=== PATIENT | male | born 1965 | race Caucasian/White ===

== ENCOUNTER 2019-03-13 17:32 | Emergency (ER) | payer SELFPAY ==
[~2019-03-13] VITALS: Ht 167.6 cm; Wt 65.0 kg
[2019-03-13 18:57] LABS: HEMATOCRIT 48.5 % (39.0-50.0); HEMOGLOBIN 16.8 g/dl (14.0-18.0); IMMATURE GRANULOCYTES 0.4 % (0.0-5.0); MEAN CORPUSCULAR HGB 31.2 pG CALC (26.0-32.0); MEAN CORPUSCULAR HGB CONC 34.6 g/L CALC (32.0-36.0); NEUT# 8.79 thou/uL (1.82-7.42); RED BLOOD COUNT 5.39 mill/uL (4.70-6.10); RED CELL DISTRI WIDTH 12.6 % (11.5-15.5)
[2019-03-13 19:17] LABS: ALBUMIN 4.4 g/dL (3.2-5.0); ALKALINE PHOSPHATASE 67 u/l (38-126); AMYLASE 62 u/l (30-110); ANION GAP 14 (6-22 (CALC)); BILIRUBIN, TOTAL 1.1 mg/dL (0.0-1.4); BUN 37 mg/dL (9-20); BUN/CREATININE RATIO 32 (12-20 (CALC)); CARBON DIOXIDE 39 mmol/l (22-30); CHLORIDE 78 mmol/l (95-108); CREATININE 1.2 mg/dL (0.7-1.3); GFR > 60 ML/MIN (>=60 (CALC)); GFR FOR AFR.AMER. > 60 ML/MIN (>=60 (CALC)); LIPASE 214 u/l (23-300); POTASSIUM 3.1 mmol/l (3.5-5.1); SGOT/AST 38 u/l (17-59); SODIUM 128 mmol/l (137-146); TOTAL PROTEIN 7.5 g/dL (6.3-8.2)
[2019-03-13 19:35] LABS: URINE BILIRUBIN - DIPSTICK NEGATIVE (NEGATIVE); URINE BLOOD DIPSTICK NEGATIVE (NEGATIVE); URINE COLOR YELLOW; URINE GLUCOSE - DIPSTICK NEGATIVE (NEGATIVE); URINE KETONE NEGATIVE (NEGATIVE); URINE LEUK ESTERASE NEGATIVE (NEGATIVE); URINE NITRITE - DIPSTICK NEGATIVE (Negative); URINE PH 6.5 (4.5-8.0); URINE PROTEIN - DIPSTICK NEGATIVE (NEG-TRACE); URINE SPECIFIC GRAVITY <=1.005; URINE UROBILINOGEN - DIPSTICK 0.2 E.U./dL (0.2)
[2019-03-13] MEDS ORDERED: K-TAB8 MEQ PO (20:20)
[2019-03-13] MEDS ORDERED: PHENERGAN25 MG/TAB PO (20:20)
[2019-03-13 21:15] VITALS: BP 168/86
== END 2019-03-13 21:15 | disposition home or self-care (01) | DRG 392 ==
LOC: ED 17:32
PROVIDERS: Family Medicine
DX: K52.9 Noninfective gastroenteritis and colitis, unspecified (principal); E87.1 Hypo-osmolality and hyponatremia; E87.6 Hypokalemia; E86.0 Dehydration; F17.210 Nicotine dependence, cigarettes, uncomplicated

== ENCOUNTER 2023-11-29 17:00 | Emergency (ER) | payer SELFPAY ==
[~2023-11-29] VITALS: Ht 167.6 cm; Wt 68.0 kg
[~2023-11-29 17:00] MED LIST: K-TAB8 MEQ PO; PHENERGAN25 MG/TAB PO
[2023-11-29] MEDS ORDERED: AMOX/K CLAV875 M1 PO (19:38)
[2023-11-29] MEDS ORDERED: TRAZODONE50 MG PO (19:38)
[2023-11-29 19:47] VITALS: BP 173/98
== END 2023-11-29 19:56 | disposition home or self-care (01) | DRG 153 ==
LOC: ED 17:00
DX: J06.9 Acute upper respiratory infection, unspecified (principal); G47.00 Insomnia, unspecified

== ENCOUNTER 2023-12-09 07:32 | Observation (INO) | payer SELFPAY ==
[~2023-12-09] VITALS: Ht 167.6 cm; Wt 70.0 kg
[2023-12-09] VITALS (21 sets, daily range): BP systolic 143–224; BP diastolic 67–122
[~2023-12-09 07:32] MED LIST changes: +AMOX/K CLAV875 M1 PO; +TRAZODONE50 MG PO
[2023-12-09 07:56] LABS: BASO% 0.4 % (0-3); EOS% 5.3 % (0-8); HEMATOCRIT 45.1 % (39.0-50.0); HEMOGLOBIN 14.7 g/dl (14.0-18.0); IMMATURE GRANULOCYTES 0.4 % (0.0-5.0); LYMPH% 23.6 % (15-41); MEAN CELL VOLUME 94.9 fL CALC (80.0-100.0); MEAN CORPUSCULAR HGB 30.9 pG CALC (26.0-32.0); MEAN CORPUSCULAR HGB CONC 32.6 g/dL CAL (32.0-36.0); MONO% 10.5 % (2-13); NEUT% 59.8 % (42-76); RED BLOOD COUNT 4.75 mill/uL (4.70-6.10); RED CELL DISTRI WIDTH 12.8 % (11.5-15.5)
[2023-12-09 08:26] LABS: ALBUMIN 4.1 g/dL (3.2-5.0); ALKALINE PHOSPHATASE 52 u/l (38-126); BUN 13 mg/dL (9-20); BUN/CREATININE RATIO 15 (12-20 (CALC)); CREATININE 0.9 mg/dL (0.7-1.3); GFR FOR AFR.AMER. > 60 ML/MIN (>=60 (CALC)); GFR OTHER RACES > 60 ML/MIN (>=60 (CALC)); SGOT/AST 43 u/l (17-59); TOTAL PROTEIN 7.3 g/dL (6.3-8.2)
[2023-12-09 08:36] LABS: ANION GAP 9 (6-22 (CALC)); BILIRUBIN, TOTAL 0.4 mg/dL (0.2-1.3); CARBON DIOXIDE 25 mmol/l (22-30); CHLORIDE 108 mmol/l (95-108); POTASSIUM 4.3 mmol/l (3.5-5.1); SODIUM 138 mmol/l (137-146)
[2023-12-10 03:39] LABS: BASO% 0.6 % (0-3); EOS% 5.3 % (0-8); HEMOGLOBIN 13.8 g/dl (14.0-18.0); IMMATURE GRANULOCYTES 0.2 % (0.0-5.0); LYMPH% 24.9 % (15-41); MEAN CELL VOLUME 93.8 fL CALC (80.0-100.0); MEAN CORPUSCULAR HGB 31.6 pG CALC (26.0-32.0); MEAN CORPUSCULAR HGB CONC 33.7 g/dL CAL (32.0-36.0); MONO% 11.2 % (2-13); NEUT# 5.16 thou/uL (1.82-7.42); NEUT% 57.8 % (42-76); RED BLOOD COUNT 4.37 mill/uL (4.70-6.10); RED CELL DISTRI WIDTH 12.6 % (11.5-15.5)
[2023-12-10 03:59] VITALS: BP 162/88
[2023-12-10 05:47] LABS: ALBUMIN 3.6 g/dL (3.2-5.0); ALKALINE PHOSPHATASE 47 u/l (38-126); ANION GAP 8 (6-22 (CALC)); BILIRUBIN, TOTAL 0.5 mg/dL (0.2-1.3); BUN 11 mg/dL (9-20); BUN/CREATININE RATIO 14 (12-20 (CALC)); CALCULATED LDLCHOLESTEROL 117 mg/dL (62-129 (CALC)); CARBON DIOXIDE 24 mmol/l (22-30); CHLORIDE 111 mmol/l (95-108); CHOLESTEROL HDL RATIO 5.9 (<4.4 (CALC)); CREATININE 0.7 mg/dL (0.7-1.3); GFR FOR AFR.AMER. > 60 ML/MIN (>=60 (CALC)); GFR OTHER RACES > 60 ML/MIN (>=60 (CALC)); HDL CHOLESTEROL 29 mg/dL (39.0-59.0); MAGNESIUM 1.9 mg/dL (1.6-2.3); POTASSIUM 4.1 mmol/l (3.5-5.1); SGOT/AST 38 u/l (17-59); SODIUM 139 mmol/l (137-146); TOTAL CHOLESTEROL 170 mg/dl (0-199); TOTAL PROTEIN 6.2 g/dL (6.3-8.2); TOTAL TRIGLYCERIDES 123 mg/dl (0-149); VLDL CHOLESTROL 25 mg/dl (8-62 (CALC))
[2023-12-10 05:56] LABS: C-REACTIVE PROTEIN < 0.5 mg/dL (0-0.9)
[2023-12-10 07:36] VITALS: BP 151/85
[2023-12-10 11:45] VITALS: BP 163/95
[2023-12-10] MEDS ORDERED: AMLODIPINE BESYL5 MG PO (11:49)
[2023-12-10] MEDS ORDERED: LOSARTAN POTASS50 MG PO (11:50)
[2023-12-10] MEDS ORDERED: ATIVAN0.5 MG PO (11:51)
== END 2023-12-10 12:39 | disposition home or self-care (01) | DRG 313 ==
LOC: ED 07:32 → ED-I 09:00 → ED 09:16 → MS2 09:17
PROVIDERS: Family Medicine; ADMIT Student in an Organized Health Care Education/Training Program; ATTEND Student in an Organized Health Care Education/Training Program
DX: R07.89 Other chest pain (principal); R21 Rash and other nonspecific skin eruption; I10 Essential (primary) hypertension; F51.01 Primary insomnia; M25.50 Pain in unspecified joint; F17.200 Nicotine dependence, unspecified, uncomplicated
CPT/HCPCS: G0378; J1650

== ENCOUNTER 2023-12-25 14:26 | Emergency (ER) | payer SELFPAY ==
[~2023-12-25] VITALS: Ht 167.6 cm; Wt 68.0 kg
[2023-12-25] VITALS (16 sets, daily range): BP systolic 132–159; BP diastolic 85–136
[~2023-12-25 14:26] MED LIST changes: +AMLODIPINE BESYL5 MG PO; +ATIVAN0.5 MG PO; +LOSARTAN POTASS50 MG PO
[2023-12-25 15:18] LABS: BASO% 0.6 % (0-3); EOS% 2.3 % (0-8); HEMATOCRIT 45.2 % (39.0-50.0); IMMATURE GRANULOCYTES 0.2 % (0.0-5.0); LYMPH% 19.8 % (15-41); MEAN CELL VOLUME 93.2 fL CALC (80.0-100.0); MEAN CORPUSCULAR HGB 30.9 pG CALC (26.0-32.0); MEAN CORPUSCULAR HGB CONC 33.2 g/dL CAL (32.0-36.0); MONO% 12.4 % (2-13); NEUT# 6.55 thou/uL (1.82-7.42); NEUT% 64.7 % (42-76); RED BLOOD COUNT 4.85 mill/uL (4.70-6.10); RED CELL DISTRI WIDTH 12.5 % (11.5-15.5)
[2023-12-25 15:35] LABS: ALKALINE PHOSPHATASE 58 u/l (38-126); ANION GAP 15 (6-22 (CALC)); BILIRUBIN, TOTAL 0.5 mg/dL (0.2-1.3); BUN 27 mg/dL (9-20); BUN/CREATININE RATIO 20 (12-20 (CALC)); CARBON DIOXIDE 26 mmol/l (22-30); CHLORIDE 104 mmol/l (95-108); CREATININE 1.3 mg/dL (0.7-1.3); GFR FOR AFR.AMER. > 60 ML/MIN (>=60 (CALC)); GFR OTHER RACES 57 ML/MIN (>=60 (CALC)); POTASSIUM 4.9 mmol/l (3.5-5.1); SGOT/AST 41 u/l (17-59); SODIUM 140 mmol/l (137-146)
[2023-12-25 15:42] LABS: ALBUMIN 4.7 g/dL (3.2-5.0)
[2023-12-25 17:03] LABS: URINE BILIRUBIN - DIPSTICK Negative (NEGATIVE); URINE BLOOD DIPSTICK Negative (NEGATIVE); URINE GLUCOSE - DIPSTICK Negative (NEGATIVE); URINE KETONE Negative (NEGATIVE); URINE LEUK ESTERASE Negative (NEGATIVE); URINE NITRITE - DIPSTICK Negative (Negative); URINE PROTEIN - DIPSTICK Negative (NEG-TRACE); URINE UROBILINOGEN - DIPSTICK 0.2 E.U./dL (0.2)
[2023-12-25 17:09] LABS: URINE COLOR Yellow
== END 2023-12-25 17:46 | disposition home or self-care (01) | DRG 313 ==
LOC: ED 14:26
PROVIDERS: Emergency Medicine
DX: R07.9 Chest pain, unspecified (principal); F41.1 Generalized anxiety disorder; I10 Essential (primary) hypertension